=== PATIENT | male | born 1965 | race Caucasian/White ===

== ENCOUNTER 2017-04-20 15:47 | Emergency (ER) | payer MEDICARE ==
[2017-04-20 15:53] VITALS: BP 148/93
--- NOTE | 2017-04-20 16:19 | EDM.PDOC ---
ED HPI GENERAL MEDICAL PROBLEM - General Chief Complaint: Gastrointestinal Problem Stated Complaint: [facility] Time Seen by Provider: 04/20/17 16:00 Source of Information: Reports: Patient History Limitations: Reports: No Limitations - History of Present Illness INITIAL COMMENTS - FREE TEXT/NARRATIVE: 51-year-old male presents the ED per ambulance after a choking event occurred while eating pizza at a private home. states he felt a piece of hard crusted stuck in his upper throat and then eventually into his food pipe. For a period of time he couldn't swallow anything even his own saliva. After. Time EMS was summoned and they brought him to the hospital. En route to the hospital he felt the food bolus swallow and go down into the stomach. He is able to drink fluids and soda pop now without any problem. Feels a bit scratching the back of his throat. Of note formation is normal. He denies any cough. Patient has chronic problems with some dysphagia that occurs randomly. He has to always cut his food up into small pieces. He denies any heartburn or reflux. Is a cigarette smoker. Patient has not had an EGD in the past. He reports similar type symptoms off and on for at least 10 years. Onset: Today Onset Date: 04/20/17 Onset Time: 15:30 Duration: Minutes: Location: Reports: Neck (Pain in his throat. Foreign body sensation.) Quality: Reports: Ache, Other (Better now as the food bolus went down in route to the hospital in the ambulance.) Severity: Moderate Improves with: Reports: Other (Improves spontaneously) Context: Reports: Other (Foreign body stuck in his upper esophagus/hypopharynx while eating pizza. Believes this was a piece of crust.). Denies: Activity, Exercise, Lifting, Sick Contact Associated Symptoms: Reports: No Other Symptoms Treatments [employer]: Reports: Other (see below) (None.) Throat Pain Score (Numeric/FACES): 2 - Related Data Allergies Allergy/AdvReac Type Severity Reaction Status Date / Time No Known Allergies Allergy Verified 04/20/17 15:50 Home Meds: Home Meds . [No Known Home Meds] 08/29/15 [History] Past Medical History - Past Health History Medical/Surgical History: Denies Medical/Surgical History Respiratory History: Reports: Asthma Social & Family History - Tobacco Use Smoking Status *Q: Current Every Day Smoker Years of Tobacco use: 20 Packs/Tins Daily: 1 Used Tobacco, but Quit: No Second Hand Smoke Exposure: No - Caffeine Use Caffeine Use: Reports: Coffee, Energy Drinks - Recreational Drug Use Recreational Drug Use: No - Living Situation & Occupation Living situation: Reports: with Significant Other Occupation: Disabled ED ROS GENERAL - Review of Systems Review Of Systems: See Below Constitutional: Denies: Fever, Chills, Malaise, Weakness, Fatigue, Weight Loss HEENT: Reports: Glasses, Throat Pain (Still feels a bit scratchy in the back of his throat.). Denies: Hearing Loss, Nosebleed, Throat Swelling Respiratory: Reports: Shortness of Breath (Or short of breath. Of time when he was choking but not now.) Cardiovascular: Reports: No Symptoms Endocrine: Reports: No Symptoms GI/Abdominal: Reports: Difficulty Swallowing (Chronic problem with swallowing. I.e. has some mild dysphagia this been going on for 10 years. He has to be careful about the size of the food that he selects also the consistency.) : Reports: No Symptoms Musculoskeletal: Reports: Back Pain Psychiatric: Reports: Anxiety, Depression Hematologic/Lymphatic: Reports: No Symptoms Immunologic: Reports: No Symptoms ED EXAM, GI/ABD - Physical Exam Exam: See Below Exam Limited By: No Limitations General Appearance: Alert, WD/WN, No Apparent Distress Eyes: Bilateral: Normal Appearance Ears: Normal External Exam Throat/Mouth: Normal Inspection, Other (Diffuse , mild erythema of the oropharynx from cigarette smoking.) Head: Atraumatic, Normocephalic Neck: Normal Inspection, Supple, Non-Tender, Full Range of Motion. No: Lymphadenopathy (L), Lymphadenopathy (R) Respiratory/Chest: No Respiratory Distress, Lungs Clear, Normal Breath Sounds, Chest Non-Tender. No: Rhonchi, Wheezing, Splinting Cardiovascular: Normal Peripheral Pulses, Regular Rate, Rhythm, No Edema, No Murmur GI/Abdominal Exam: Normal Bowel Sounds, Soft, Non-Tender, No Organomegaly Neurological: Alert, Oriented, CN II-XII Intact, Normal Cognition Psychiatric: Normal Affect, Normal Mood Skin Exam: Warm, Dry, Intact, Normal Color, No Rash Course - Vital Signs Last Recorded V/S: Last Vital Signs Temp 36.5 C 04/20/17 15:51 Pulse 68 04/20/17 15:51 Resp 16 01/24/18 15:51 BP 148/93 H 04/20/17 15:51 Pulse Ox 95 04/20/17 15:51 - Radiology Interpretation Free Text/Narrative:: 51-year-old male presents the ED with foreign body sensation in his upper airway and esophagus that occurred while he was eating pizza. He believes a piece of pizza crust got stuck in his upper airway and throat for a period of time. He has this occur on a fairly frequent basis with dysphagia particularly upon initiating swallowing. Has been problematic off and on for the last 10 years. knows is to make sure his food portions are cut into very small pieces. En route to the hospital and the eminence he felt the food bolus go down his esophagus into the stomach. Subsequent he's been able to drink or half a can of soda pop with no problems. Examination is otherwise normal with no evidence of aspiration. Lungs are clear.oropharynx is mildly erythematous due to cigarette smoking. He has no pain with swallowing at this time. He will be therefore discharged. No treatment required.. Departure - Departure Time of Disposition: 16:16 Disposition: Home, Self-Care 01 Condition: Good Clinical Impression: Esophageal obstruction due to food impaction - Discharge Information Instructions: Swallowed Foreign Body, Adult, [employer] Forms: ED Department Discharge Additional Instructions: Evaluation in the emergency department after developing choking sensation and food stuck in the upper throat and esophagus. This occur while eating pizza. It appears that a piece of pizza was too large to pass down into the esophagus and transiently got stuck in the upper food pipe. This caused pain and retching and inability to swallow saliva transiently. En route to the hospital the food bolus was felt to go down the food pipe and now you're able to swallow without any difficulties. On examination there is no evidence of any aspiration of fluids into the lungs. You have suffered previous problems in the past and are were to cut food into very small pieces to avoid choking. Note the back of the throat and upper airway might feel a little raw for 2-3 days from being scratched but it will heal on its own. May eat and drink otherwise per normal.
== END 2017-04-20 16:30 | disposition home or self-care (01) ==
LOC: JD.ED 15:47
DX: K22.2 Esophageal obstruction (principal); F17.210 Nicotine dependence, cigarettes, uncomplicated
CPT/HCPCS: 99284